=== PATIENT | female | born 1985 | race Caucasian/White ===

== ENCOUNTER → 2020-12-11 | Outpatient (CLI) | payer OTHER ==
--- NOTE | 2020-12-15 12:58 | MM ---
Reason for exam: clinical finding. Baseline mammogram. History: Patient had first child at age 30. Took hormonal contraceptives beginning at age 17. Physical Findings: Nurse did not find any significant physical abnormalities on exam. [facility] Mammo w CAD VONNIE Bilateral CC and MLO view(s) were taken. The breast tissue is heterogeneously dense. This may lower the sensitivity of mammography. There is no discrete abnormality. Partially visualized palpable marker right axilla. These results were verbally communicated with the patient and result sheet given to the patient on 12/11/20. ASSESSMENT: Incomplete: need additional imaging evaluation, BI-RAD 0 RECOMMENDATION: Ultrasound of the right breast.
--- NOTE | 2020-12-15 13:00 | USB ---
Reason for exam: additional evaluation requested from abnormal screening. History: Patient had first child at age 30. Took hormonal contraceptives beginning at age 17. US Breast RT Right complete breast ultrasound includes all four quadrants, the retroareolar region and axilla. Finding demonstrates no cystic or solid lesion seen. Entire right breast scanned. Multiple nodes in axilla. Individual nodes measuring up to 8mm round and mildly thickened. Additional chain of prominent nodes spanning 2.5cm. These are likely reactive. 3 month follow up recommended. These results were verbally communicated with the patient and result sheet given to the patient on 12/11/20. ASSESSMENT: Probably benign, BI-RAD 3 RECOMMENDATION: Ultrasound of the right breast in 3 months.
== END | disposition home or self-care (01) ==
LOC: RADMAMWWP 14:18
PROVIDERS: ATTEND Family Medicine
DX: R92.8 Other abnormal and inconclusive findings on diagnostic imaging of breast (principal); Z79.3 Long term (current) use of hormonal contraceptives
CPT/HCPCS: 77066